=== PATIENT | female | born 1975 ===

== ENCOUNTER 2017-10-05 16:44 | Emergency (ER) | payer MEDICAID ==
[2017-10-05 16:45] VITALS: BMI 29.6
[2017-10-05] MEDS ORDERED: Sodium Chloride 0.9% 1,000 ML IV STA (17:02)
--- NOTE | 2017-10-05 18:09 | ED PDOC ---
Arrival/HPI - General Chief Complaint: GI Problem Time Seen by Provider: 10/05/17 16:59 Historian: Patient - History of Present Illness Narrative History of Present Illness (Text): 10/05/17 18:06 42yo female with PMHx of Diabetes present with complaint of diarrhea and dizziness. Notes that diarrhea started a week ago, a day after she started unknown antibiotics. she started having dizziness and weakness 4days ago. She denies abdominal pain, hematochezia, melena, fever, chills, headache, focal weakness, chest pain, any other complaint. Past Medical History - Provider Review Nursing Documentation Reviewed: Yes - Infectious Disease Hx of Infectious Diseases: None - Tetanus Immunization Tetanus Immunization: Unknown - Cardiac Hx Cardiac Disorders: No - Pulmonary Hx Asthma: Yes - Neurological Hx Neurological Disorder: No - Endocrine/Metabolic Hx Endocrine Disorders: Yes Hx Diabetes Mellitus Type 2: Yes Hx Hypothyroidism: Yes - Hematological/Oncological Hx Blood Disorders: No - Integumentary Hx Dermatological Disorder: No - Musculoskeletal/Rheumatological Hx Arthritis: Yes - Gastrointestinal Hx Gastrointestinal Disorders: No - Genitourinary/Gynecological Hx Genitourinary Disorders: No - Psychiatric Hx Depression: No Hx Substance Use: No - Past Surgical History Past Surgical History: No Previous - Surgical History Hx Thyroidectomy: Yes Other/Comment: PARTIAL THYROID - Anesthesia Hx Anesthesia: Yes Hx Anesthesia Reactions: No - Suicidal Assessment Feels Threatened In Home Enviroment: No Family/Social History - Physician Review Nursing Documentation Reviewed: Yes Family/Social History: Unknown Family HX Smoking Status: Heavy Smoker > 10 Cigarettes Daily Hx Alcohol Use: No Hx Substance Use: No Hx Substance Use Treatment: No Allergies/Home Meds Allergies/Adverse Reactions: Allergies ibuprofen [From Motrin] Allergy (Verified 10/05/17 16:50) REDNESS latex Allergy (Verified 10/05/17 16:50) RASH Home Medications: Home Meds Medication Instructions Recorded Confirmed Glimepiride [amaRYL] 4 mg PO DAILY 06/08/16 10/05/17 MetFORMIN [glucOPHAGE] 500 mg PO BID 06/08/16 10/05/17 Diclofenac [Diclofenac] 75 mg PO BID 10/05/17 10/05/17 Pregabalin [Lyrica] 100 mg PO TID 10/05/17 10/05/17 Review of Systems - Physician Review All systems were reviewed & negative as marked: Yes - Review of Systems Constitutional: Normal Eyes: Normal ENT: Normal Respiratory: Normal Cardiovascular: Normal Gastrointestinal: Diarrhea. absent: Abdominal Pain, Constipation, Nausea, Vomiting, Hematochezia, Hematemesis Genitourinary Female: Normal Musculoskeletal: Normal Skin: Normal Neurological: Dizziness. absent: Headache, Focal Weakness Endocrine: Normal Hemo/Lymphatic: Normal Psychiatric: Normal Physical Exam Vital Signs Reviewed: Yes Vital Signs Temp Pulse Resp BP Pulse Ox 10/05/17 16:54 98.1 F 92 H 16 115/78 98 Temperature: Afebrile Blood Pressure: Normal Pulse: Regular Respiratory Rate: Normal Appearance: Positive for: Well-Appearing, Non-Toxic, Comfortable Pain Distress: None Mental Status: Positive for: Alert and Oriented X 3 - Systems Exam Head: Present: Atraumatic, Normocephalic Pupils: Present: PERRL Extroacular Muscles: Present: EOMI Conjunctiva: Present: Normal Mouth: Present: Moist Mucous Membranes Neck: Present: Normal Range of Motion Respiratory/Chest: Present: Clear to Auscultation, Good Air Exchange. No: Respiratory Distress, Accessory Muscle Use Cardiovascular: Present: Regular Rate and Rhythm, Normal S1, S2. No: Murmurs Abdomen: Present: Normal Bowel Sounds, Other (Soft). No: Tenderness, Distention , Peritoneal Signs, Rebound, Guarding, McBurney's Point Tender, Rovsing's Sign Present Back: Present: Normal Inspection Upper Extremity: Present: Normal Inspection. No: Cyanosis, Edema Lower Extremity: Present: Normal Inspection. No: Edema Neurological: Present: GCS=15, CN II-XII Intact, Speech Normal, Motor Func Grossly Intact, Normal Sensory Function, Normal Cerebellar Funct, Norm Deep Tendon Reflexes, Gait Normal, Memory Normal, Normal 2Pt Descrimination, Other ( No focal neurological deficit) Skin: Present: Warm, Dry, Normal Color. No: Rashes Psychiatric: Present: Alert, Oriented x 3, Normal Insight, Normal Concentration Medical Decision Making ED Course and Treatment: 10/05/17 19:14 Pt in ED for stated history. She was hemodynamically stabel; and in no distress in ED. Lab was unremarkable with elevated BS noted. PT did not take her medication and she de,ined Insulin in ED. She was given Metformin and Gliperimdie in ED. She was hydrated. Rpeat FS improved. Stool was sent for C. diff She was advised to f/u MR in 2days for result Referred to her PMD. TRT ED for any new or worsening symptoms - Lab Interpretations Lab Results: 10/05/17 17:47 10/05/17 17:47 Lab Results 10/05/17 17:58: Influenza Typ A,B (EIA) Negative for flu a/b, Grp A Beta Strep Ag Negative 10/05/17 17:58: Urine Color Yellow, Urine Appearance Sl cloudy, Urine pH 6.0, Ur Specific [place] 1.015, Urine Protein Negative, Urine Glucose (UA) >=1000, Urine Ketones Trace H, Urine Blood Large H, Urine Nitrate Negative, Urine Bilirubin Negative, Urine Urobilinogen 0.2, Ur Leukocyte Esterase Negative, Urine RBC Tntc, Urine WBC 5 - 10, Ur Epithelial Cells 6 - 8, Urine Bacteria Mod 10/05/17 17:47: Sodium 137, Potassium 4.2, Chloride 104, Carbon Dioxide 22, Anion Gap 16, BUN 9, Creatinine 0.6 L, Est GFR ( Amer) > 60, Est GFR (Non -Af Amer) > 60, Random Glucose 375 H*, Calcium 8.8, Total Bilirubin 0.4, AST 18 , ALT 21, Alkaline Phosphatase 90, Total Protein 7.5, Albumin 3.8, Globulin 3.6 , Albumin/Globulin Ratio 1.1, Lipase 119 10/05/17 17:47: PT 10.8, INR 0.99, APTT 28.4 10/05/17 17:47: WBC 8.3, RBC 4.29, Hgb 12.9, Hct 39.2, MCV 91.4, MCH 30.1, MCHC 32.9, RDW 13.2, Plt Count 322, MPV 11.5 H, Gran % 68.7 H, Lymph % (Auto) 24.5, [place] % (Auto) 4.2, Eos % (Auto) 2.4, Baso % (Auto) 0.2, Gran # 5.68, Lymph # 2.0 , [place] # 0.4, Eos # 0.2, Baso # 0.02 - Medication Orders Current Medication Orders: Discontinued Medications Famotidine (Pepcid) 20 mg IVP STAT STA Stop: 10/05/17 17:03 Last Admin: 10/05/17 17:59 Dose: 20 mg IVP Administration Document 10/05/17 17:59 OCS (Rec: 10/05/17 17:59 OCS [id number]) Charges for Administration # of IVP Administrations 1 Glimepiride (Amaryl) 4 mg PO DAILY STA Stop: 10/05/17 18:50 Last Admin: 10/05/17 19:23 Dose: 4 mg Sodium Chloride (Sodium Chloride 0.9%) 1,000 mls @ 1,000 mls/hr IV .Q1H STA Stop: 10/05/17 18:01 Last Admin: 10/05/17 17:59 Dose: 1,000 mls/hr eMAR Start Stop Document 10/05/17 17:59 OCS (Rec: 10/05/17 17:59 OCS [id number]) Intravenous Solution Start Date 10/05/17 Start Time 17:59 End Date 10/05/17 End time 18:59 Total Infusion Time 60 Insulin Human Regular (Humulin R Med) 8 units IV ONCE STA PRN Reason: Protocol Stop: 10/05/17 18:37 Last Admin: 10/05/17 18:49 Dose: Not Given Non-Admin Reason: Patient Refused Metformin HCl (Glucophage) 500 mg PO STAT STA Stop: 10/05/17 18:51 Last Admin: 10/05/17 19:23 Dose: 500 mg Ondansetron HCl (Zofran Inj) 4 mg IVP STAT STA Stop: 10/05/17 17:03 Last Admin: 10/05/17 17:59 Dose: 4 mg IVP Administration Document 10/05/17 17:59 OCS (Rec: 10/05/17 17:[address]) Charges for Administration # of IVP Administrations 1 Disposition/Present on Arrival - Present on Arrival Any Indicators Present on Arrival: No History of DVT/PE: No History of Uncontrolled Diabetes: Yes Urinary Catheter: No History of Decub. Ulcer: No History Surgical Site Infection Following: None - Disposition Have Diagnosis and Disposition been Completed?: Yes Diagnosis: Diarrhea, Dizziness, Hyperglycemia Disposition: HOME/ ROUTINE Disposition Time: 19:55 Patient Plan: Discharge Condition: STABLE Discharge Instructions (ExitCare): Diabetic Hyperglycemia (ED), Acute Diarrhea (ED), Dizziness (ED) Additional Instructions: Follow up with your Doctor REturn to ED for any new or worsening symptoms Prescriptions: Cephalexin [Keflex] 500 mg PO QID #28 capsule Referrals: Stan Patel MD [Primary Care Provider] - Follow up with primary Forms: [employer] (Sinhala)
[2017-10-05 18:13] LABS: INR 0.99 (0.93-1.08); PARTIAL THROMBOPLASTIN TIME 28.4 Seconds (25.1-36.5)
[2017-10-05 18:21] LABS: BASO # 0.02 K/mm3 (0.0-2.0); BASO % 0.2 % (0.0-3.0); EOS # 0.2 (0.0-0.7); EOS % 2.4 % (1.5-5.0); GRAN # 5.68 (1.4-6.5); GRAN % 68.7 % (50.0-68.0); HEMATOCRIT 39.2 % (36.0-48.0); LYMPH % 24.5 % (22.0-35.0); MEAN CELL VOLUME 91.4 fl (80.0-105.0); MEAN CORPUSCULAR HEMOGLOBIN 30.1 pg (25.0-35.0); MEAN CORPUSCULAR HGB CONC 32.9 g/dl (31.0-37.0); MEAN PLATELET VOLUME 11.5 fl (7.0-11.0); MONO # 0.4 (0.1-0.6); MONO % 4.2 % (1.0-6.0); RED CELL DISTRIBUTION WIDTH 13.2 % (11.5-14.5); WHITE BLOOD COUNT 8.3 10^3/ul (4.5-11.0)
[2017-10-05 18:23] LABS: URINE BILIRUBIN NEGATIVE (NEGATIVE); URINE BLOOD LARGE (NEGATIVE); URINE GLUCOSE (UA) >=1000 mg/dL (NEGATIVE); URINE KETONE TRACE mg/dL (NEGATIVE); URINE LEUKOCYTE ESTERASE NEGATIVE Leu/uL (NEGATIVE); URINE PROTEIN NEGATIVE mg/dL (<30 mg/dL); URINE UROBILINOGEN 0.2 E.U./dL (<1 E.U./dL)
[2017-10-05 18:26] LABS: ALB/GLOB RATIO 1.1 (1.1-1.8); ALKALINE PHOSPHATASE 90 U/L (38-126); ALT/SGPT 21 U/L (7-56); AST/SGOT 18 U/L (14-36); BILIRUBIN,TOTAL 0.4 mg/dL (0.2-1.3); BLOOD UREA NITROGEN 9 mg/dL (7-21); CALCIUM 8.8 mg/dL (8.4-10.5); CARBON DIOXIDE 22 mmol/L (21-33); CHLORIDE 104 mmol/L (98-107); GFR AFRICAN-AMERICAN > 60; GLUCOSE,RANDOM 375 mg/dL (70-110); LIPASE 119 U/L (23-300); POTASSIUM 4.2 mmol/L (3.6-5.0); SODIUM 137 mmol/L (132-148); TOTAL PROTEIN 7.5 g/dL (5.8-8.3)
[2017-10-05] MEDS ORDERED: Insulin Reg-MEDIUM-Coverage IV STA (18:36)
[2017-10-05 18:38] LABS: URINE APPEARANCE SL CLOUDY (CLEAR); URINE COLOR YELLOW (YELLOW)
[2017-10-05 18:40] LABS: URINE BACTERIA MOD (NEG); URINE RBC TNTC /hpf (0-2)
[2017-10-05 20:06] VITALS: BP 126/81; PULSE 62; RESP 17; O2SAT 96
[2017-10-05 20:19] VITALS: TEMP 98
== END 2017-10-05 20:19 | disposition home or self-care (01) ==
LOC: ED 16:44
DX: E11.65 Type 2 diabetes mellitus with hyperglycemia (principal); R19.7 Diarrhea, unspecified; R42 Dizziness and giddiness
CPT/HCPCS: 80053; 81001; 83690; 85025; 85610; 85730; 87070; 87086; 87324; 87430; 87804; 96361; 96374; 96375; 99284; J2405; J7040

== ENCOUNTER 2018-02-28 08:26 | Emergency (ER) | payer MEDICAID ==
[2018-02-28 08:31] VITALS: BMI 32.2
[2018-02-28 08:36] VITALS: TEMP 98.4
[2018-02-28] MEDS ORDERED: Sodium Chloride 0.9% 1,000 ML IV STA (09:00)
[2018-02-28 09:24] LABS: ARTERIAL BLOOD GAS HCO3 23.1 mmol/L (21-28); ARTERIAL BLOOD GAS O2 SAT 99.6 % (95-98); ARTERIAL BLOOD GAS PCO2 34 mm/Hg (35-45); ARTERIAL BLOOD GAS PH 7.44 (7.35-7.45); ARTERIAL BLOOD GAS TCO2 24.1 mmol.L (22-28)
--- NOTE | 2018-02-28 09:48 | ED PDOC ---
Arrival/HPI - General Historian: Patient, Spouse - General Chief Complaint: High Blood Sugar Time Seen by Provider: 02/28/18 08:29 - History of Present Illness Narrative History of Present Illness (Text): 02/28/18 09:31 42 yo F with PMH of type II diabetes (since 2002) and sciatica presents to the ER complaining of persistently elevated blood sugars, and 2 days of dizziness, disorientation, and shortness of breath on exertion. She denies any chest pain, chest pain on exertion, palpitations. She also admits to nausea. Patient reports that her blood sugar is poorly controlled at baseline, despite compliance with her medications, and that she has not been taking her glimepiride for the past week because she ran out of her medications. She also reports that about one week ago, she had a procedure for her sciatica; a "nerve block" which required sedation. She denies any sick contacts, recent travel, insect bites. She also denies cough, rhinorrhea, congestion, rash, dysuria. ( Mary Hoffman) Past Medical History - Provider Review Nursing Documentation Reviewed: Yes - Travel History Have you recently traveled outside [place] w/in the past 3 mons?: No - Infectious Disease Hx of Infectious Diseases: None - Tetanus Immunization Tetanus Immunization: Unknown - Cardiac Hx Cardiac Disorders: No - Pulmonary Hx Asthma: Yes - Neurological Hx Neurological Disorder: No - Endocrine/Metabolic Hx Diabetes Mellitus Type 2: Yes Hx Hypothyroidism: Yes - Hematological/Oncological Hx Blood Disorders: No - Integumentary Hx Dermatological Disorder: No - Musculoskeletal/Rheumatological Hx Arthritis: Yes Hx Rheumatoid Arthritis: Yes - Gastrointestinal Hx Gastrointestinal Disorders: No - Genitourinary/Gynecological Hx Genitourinary Disorders: No - Psychiatric Hx Depression: No Hx Substance Use: No - Past Surgical History Past Surgical History: No Previous - Surgical History Hx Thyroidectomy: Yes Other/Comment: PARTIAL THYROID - Anesthesia Hx Anesthesia: Yes Hx Anesthesia Reactions: No - Suicidal Assessment Feels Threatened In Home Enviroment: No - Patient History Narrative Patient History: Diebetes (Mary Hoffman) Family/Social History - Physician Review Nursing Documentation Reviewed: Yes Family/Social History: No Known Family HX, Unknown Family HX Smoking Status: Heavy Smoker > 10 Cigarettes Daily Hx Alcohol Use: No Hx Substance Use: No Hx Substance Use Treatment: No Allergies/Home Meds Allergies/Adverse Reactions: Allergies ibuprofen [From Motrin] Allergy (Verified 10/05/17 16:50) REDNESS latex Allergy (Verified 10/05/17 16:50) RASH Home Medications: Home Meds Medication Instructions Recorded Confirmed Glimepiride [amaRYL] 4 mg PO DAILY 06/08/16 02/28/18 Diclofenac [Diclofenac] 75 mg PO BID 10/05/17 02/28/18 Pregabalin [Lyrica] 100 mg PO TID 10/05/17 02/28/18 MetFORMIN [glucoPHAGE] 1,000 mg PO BID 02/28/18 02/28/18 Review of Systems - Review of Systems Constitutional: Normal Eyes: Normal ENT: Normal Respiratory: SOB Cardiovascular: Normal Gastrointestinal: Abdominal Pain Genitourinary Female: Normal Musculoskeletal: Normal Skin: Normal Neurological: Dizziness Endocrine: Polyuria Hemo/Lymphatic: Normal Psychiatric: Normal Physical Exam Vital Signs Reviewed: Yes Temperature: Afebrile Blood Pressure: Normal Pulse: Regular Respiratory Rate: Normal Appearance: Positive for: Well-Appearing, Non-Toxic. No: Comfortable Pain Distress: Mild Mental Status: Positive for: Alert and Oriented X 3 Finger Stick Blood Glucose: 356 - Systems Exam Head: Present: Atraumatic, Normocephalic Pupils: Present: PERRL Extroacular Muscles: Present: EOMI Conjunctiva: Present: Normal Mouth: Present: Dry Pharnyx: Present: Normal Neck: Present: Normal Range of Motion Respiratory/Chest: Present: Clear to Auscultation, Good Air Exchange. No: Wheezes, Rales, Rhonchi Cardiovascular: Present: Regular Rate and Rhythm, Normal S1, S2 Abdomen: Present: Normal Bowel Sounds. No: Tenderness, Distention, Peritoneal Signs, Rebound, Guarding Upper Extremity: Present: Normal Inspection. No: Cyanosis, Edema Lower Extremity: Present: Normal Inspection. No: Edema, CALF TENDERNESS Neurological: Present: GCS=15, CN II-XII Intact, Speech Normal Skin: Present: Warm, Dry, Normal Color Psychiatric: Present: Alert, Oriented x 3, Normal Insight, Normal Concentration Vital Signs Temp Pulse Resp BP Pulse Ox 02/28/18 13:21 78 16 128/86 99 02/28/18 11:16 78 18 121/68 100 02/28/18 10:13 72 121/65 100 02/28/18 08:36 98.4 F 88 18 132/85 98 Medical Decision Making ED Course and Treatment: 02/28/18 10:36 Impression: Hyperglycemia, nausea, dyspnea on exertion Differential diagnoses include, but are not limited to: HHS, DKA, ACS, UTI, noncompliance Prior ER visits: Plan -- 1L NS IVF bolus -- Labs: CBC, CMP, cardiac ISO, UA, ABG -- CXR, EKG -- Reassess and dispo Progress notes -- ABG shows no acidosis, no elevated lactate -- Labs remarkable for hyperglycemia -- EKG and CXR unremarkable -- Requested nurse to repeat accucheck after 1L NS bolus 02/28/18 11:39 -- Repeat accucheck shows mild improvement -- Nausea and dizziness improved; patient requesting diet -- Ordered repeat 500cc bolus -- Patient complaining of abdominal pain, dull, cramping, epigastric, has not had this pain before, unimproved since presentation -- Ordered CT Abd/Pelv with IV contrast -- Ordered pepcid 20mg IV 02/28/18 12:34 02/28/18 14:45 -- CT scan unremarkable -- Patient reports that abdominal pain resolved after IV pepcid -- Patient no longer nauseous, and she at a bagel, despite being told that she must remain NPO -- Patient feels well overall, with total resolution in her symptoms. Patient called her pharmacy and has a refill of her prescriptions waiting for her. -- Discussed importance of compliance with medications, and close follow up. Patient will be discharged home. She is in agreement with plan. Informed patient to return to the ER for any new or worsening concerns. (Mary Hoffman) Patient seen and evaluated with medical program specialist. On exam, she is cardiovascularly stable. She is not acidotic, anion gap is unremarkable. IV fluids given with improvement in hyperglycemia. She is hungry, no nausea or vomiting in ED, ate food without difficulty. She admit noncompliance with her meds for past week. Current exam NOT consistent with severe DKA. Patient states mild abdominal discomfort for past week, on exam, she has mild right sided pain. Denies dysuria or vaginal discharge. CT abdomen/unremarkable. She denies chest pain and on my history, denies specific sob with exertion states to me more generally fatigued since her blood sugar has been elevated. Denies family hx of CAD. EKG and troponin unremarkable. She denies chest pain or shortness of breath with exertion on my history. NO hypoxia. Lungs clear. On re-exam, she states symptoms resolved. She states she was able to contact her physician today and her diabetic medication was refilled and "waiting for me at pharmacy". Patient and family advised of risks of noncompliance with meds and need for close follow-up. (Janet Longo) - Lab Interpretations Lab Results: 02/28/18 09:20 02/28/18 09:20 Lab Results 02/28/18 11:15: POC Glucose (mg/dL) 314 H 02/28/18 09:20: Sodium 134, Chloride 98, Potassium 4.4, Carbon Dioxide 25, Anion Gap 15, BUN 13, Creatinine 0.6 L, Est GFR ( Amer) > 60, Est GFR ( Non-Af Amer) > 60, Random Glucose 392 H*, Calcium 9.3, Total Bilirubin 0.4, AST 13 L D, ALT 22, Alkaline Phosphatase 87, Lactate Dehydrogenase 333, Total Creatine Kinase 27 L, Troponin I < 0.01, Total Protein 7.8, Albumin 4.2, Globulin 3.6, Albumin/Globulin Ratio 1.2 02/28/18 09:20: pCO2 34 L, pO2 102.0 H, HCO3 23.1, ABG pH 7.44, ABG Total CO2 24.1, ABG O2 Saturation 99.6 H, ABG Base Excess -0.5, ABG Potassium 4.0, Sodium 136.0, Chloride 104.0, Glucose 402 H*, Lactate 1.7, FiO2 21.0, Arterial Blood Potassium 4.0 02/28/18 09:20: Urine Color Yellow, Urine Appearance Clear, Urine pH 6.0, Ur Specific [place] 1.015, Urine Protein Negative, Urine Glucose (UA) Negative, Urine Ketones 40 H, Urine Blood Negative, Urine Nitrate Negative, Urine Bilirubin Negative, Urine Urobilinogen 0.2, Ur Leukocyte Esterase Negative 02/28/18 09:20: PT 10.7, INR 0.93, APTT 28.4 02/28/18 09:20: WBC 8.1, RBC 4.54, Hgb 13.3, Hct 40.1, MCV 88.3 D, MCH 29.3, MCHC 33.2, RDW 13.2, Plt Count 327, MPV 11.6 H, Gran % 74.0 H, Lymph % (Auto) 20.9 L, [place] % (Auto) 3.7, Eos % (Auto) 1.0 L, Baso % (Auto) 0.4, Gran # 5.97, Lymph # (Auto) 1.7, [place] # (Auto) 0.3, Eos # (Auto) 0.1, Baso # (Auto) 0.03 02/28/18 08:34: POC Glucose (mg/dL) 356 H - RAD Interpretation Radiology Orders: 02/28/18 09:05 CHEST PORTABLE [RAD] Stat 02/28/18 11:49 ABDOMEN & PELVIS [ABD & PELVIS IV CONTRAST ONLY] [CT] Stat - Medication Orders Current Medication Orders: Discontinued Medications Famotidine (Pepcid 20mg/50ml Premix) 20 mg IVPB STAT STA Stop: 02/28/18 12:00 Last Admin: 02/28/18 12:32 Dose: 20 mg eMAR Start Stop Document 02/28/18 12:32 MS (Rec: 02/28/18 12:32 MS [id number]) Intravenous Solution Start Date 02/28/18 Start Time 12:32 Sodium Chloride (Sodium Chloride 0.9%) 1,000 mls @ 999 mls/hr IV .Q1H1M STA Stop: 02/28/18 10:00 Last Admin: 02/28/18 09:55 Dose: 999 mls/hr eMAR Start Stop Document 02/28/18 09:55 MS (Rec: 02/28/18 09:56 MS [id number]) Intravenous Solution Start Date 02/28/18 Start Time 09:56 End Date 02/28/18 End time 10:56 Total Infusion Time 60 Sodium Chloride (Sodium Chloride 0.9%) 500 mls @ 999 mls/hr IV .Q31M STA Stop: 02/28/18 12:03 Last Admin: 02/28/18 11:50 Dose: 999 mls/hr eMAR Start Stop Document 02/28/18 11:50 MS (Rec: 02/28/18 11:50 MS [id number]) Intravenous Solution Start Date 02/28/18 Start Time 11:50 End Date 02/28/18 End time 12:20 Total Infusion Time 30 Oxycodone/Acetaminophen (Percocet 10/325 Mg Tab) 1 tab PO STAT STA Stop: 02/28/18 10:40 Last Admin: 02/28/18 10:59 Dose: 1 tab MAR Pain Assessment Document 02/28/18 10:59 MS (Rec: 02/28/18 11:01 MS [id number]) Pain Reassessment Is this a pain reassessment? No Sleep Is patient sleeping during reassessment? No Presence of Pain Presence of Pain Yes Pain Scale Used Pain Scale Used Numeric Location Left, Right or Bilateral Right Pain Location Body Site Leg Description Description Intermittent Intensity of Pain at present 9 Pain Behavior Irritability Grasping Site Disposition/Present on Arrival - Present on Arrival Any Indicators Present on Arrival: Yes History of DVT/PE: No History of Uncontrolled Diabetes: Yes Urinary Catheter: No History of Decub. Ulcer: No History Surgical Site Infection Following: None - Disposition Have Diagnosis and Disposition been Completed?: Yes Disposition Time: 14:48 Patient Plan: Discharge - Disposition Diagnosis: Uncontrolled diabetes mellitus, Hyperglycemia, Abdominal pain Disposition: HOME/ ROUTINE Condition: FAIR Discharge Instructions (ExitCare): Hyperglycemia, Adult (DC), Diabetic Ketoacidosis (DC) Additional Instructions: -- Continue your medications as previously prescribed, and adhere to a low carbohydrate diet -- Take your first dose of glimepiride and metformin today, when you picking tech your prescriptions -- Follow up with your primary care doctor within 2-3 days -- Return to the ER for any new or worsening concerns Forms: [employer] (Khmer)
[2018-02-28 10:13] LABS: BASO # 0.03 K/mm3 (0.0-2.0); BASO % 0.4 % (0.0-3.0); EOS # 0.1 (0.0-0.7); GRAN # 5.97 (1.4-6.5); HEMOGLOBIN 13.3 g/dL (12.0-16.0); LYMPH # 1.7 (1.2-3.4); LYMPH % 20.9 % (22.0-35.0); MEAN CELL VOLUME 88.3 fl (80.0-105.0); MEAN CORPUSCULAR HEMOGLOBIN 29.3 pg (25.0-35.0); MEAN CORPUSCULAR HGB CONC 33.2 g/dl (31.0-37.0); MEAN PLATELET VOLUME 11.6 fl (7.0-11.0); MONO # 0.3 (0.1-0.6); MONO % 3.7 % (1.0-6.0); RBC 4.54 10^6/uL (3.5-6.1); RED CELL DISTRIBUTION WIDTH 13.2 % (11.5-14.5); WHITE BLOOD COUNT 8.1 10^3/ul (4.5-11.0)
[2018-02-28 10:20] LABS: URINE BILIRUBIN NEGATIVE (NEGATIVE); URINE BLOOD NEGATIVE (NEGATIVE); URINE GLUCOSE (UA) NEGATIVE (NEGATIVE); URINE LEUKOCYTE ESTERASE NEGATIVE Leu/uL (NEGATIVE); URINE PROTEIN NEGATIVE mg/dL (<30 mg/dL); URINE UROBILINOGEN 0.2 E.U./dL (<1 E.U./dL)
[2018-02-28 10:21] LABS: URINE APPEARANCE CLEAR (CLEAR)
[2018-02-28 10:22] LABS: URINE COLOR YELLOW (YELLOW)
[2018-02-28 10:28] LABS: TROPONIN I < 0.01 ng/mL
[2018-02-28 10:29] LABS: INR 0.93 (0.93-1.08); PARTIAL THROMBOPLASTIN TIME 28.4 Seconds (25.1-36.5); PROTHROMBIN TIME 10.7 SECONDS (9.4-12.5)
[2018-02-28 10:30] LABS: ALB/GLOB RATIO 1.2 (1.1-1.8); ALBUMIN 4.2 g/dL (3.0-4.8); ALT/SGPT 22 U/L (7-56); AST/SGOT 13 U/L (14-36); BLOOD UREA NITROGEN 13 mg/dL (7-21); CALCIUM 9.3 mg/dL (8.4-10.5); GFR AFRICAN-AMERICAN > 60; GFR NON-AFRICAN AMERICAN > 60
[2018-02-28] MEDS ORDERED: Oxycodone/Acetaminophen 10/325 mg Tab PO STA (10:39)
[2018-02-28 11:17] VITALS: PULSE 78
[2018-02-28] MEDS ORDERED: Sodium Chloride 0.9% 500 ML IV STA (11:33)
[2018-02-28] MEDS ORDERED: Famotidine 20mg/50ml Premix IVPB STA (11:59)
[2018-02-28] MEDS ORDERED: Iohexol 350 MG/100 ML VIAL ONE (12:19)
--- NOTE | 2018-02-28 12:55 | RAD ---
HISTORY: Shortness of breath COMPARISON: 10/12/2016. FINDINGS: LUNGS: The lungs are well inflated and clear. PLEURA: No significant pleural effusion identified, no pneumothorax apparent. CARDIOVASCULAR: Normal. OSSEOUS STRUCTURES: No significant abnormalities. VISUALIZED UPPER ABDOMEN: Normal. OTHER FINDINGS: None. IMPRESSION: No active pulmonary disease.
--- NOTE | 2018-02-28 13:12 | CT ---
PROCEDURE: CT Abdomen and Pelvis with contrast HISTORY: abdominal pain COMPARISON: 07/26/2014 TECHNIQUE: Contrast dose: 100 cc of Omni 350 Radiation dose: Total exam DLP = 1008 mGy-cm. This CT exam was performed using one or more of the following dose reduction techniques: Automated exposure control, adjustment of the mA and/or kV according to patient size, and/or use of iterative reconstruction technique. FINDINGS: LOWER THORAX: Unremarkable. LIVER: Unremarkable. No gross lesion or ductal dilatation. Mild fatty infiltration GALLBLADDER AND BILE DUCTS: Unremarkable. PANCREAS: Unremarkable. No gross lesion or ductal dilatation. SPLEEN: Unremarkable. ADRENALS: Unremarkable. No mass. KIDNEYS AND URETERS: Unremarkable. No hydronephrosis. No solid mass. VASCULATURE: Unremarkable. No aortic aneurysm. BOWEL: Unremarkable. No obstruction. No gross mural thickening. APPENDIX: Normal appendix. PERITONEUM: Unremarkable. No free fluid. No free air. LYMPH NODES: Unremarkable. No enlarged lymph nodes. BLADDER: Unremarkable. REPRODUCTIVE: There is a 5.4 cm fibroid in the left side of the uterine fundus. BONES: No acute fracture. OTHER FINDINGS: None. IMPRESSION: Uterine fibroid. Mild fatty infiltration of the liver. No acute intra-abdominal findings
[2018-02-28 13:22] VITALS: BP 128/86; RESP 16; O2SAT 99
--- NOTE | 2018-02-28 18:38 | CARD ---
APPROVED REPORT EKG Measurement Heart [id number] <Conclusion> Normal sinus rhythm Normal ECG
== END 2018-02-28 15:00 | disposition home or self-care (01) ==
LOC: ED 08:26
DX: E11.65 Type 2 diabetes mellitus with hyperglycemia (principal); R10.9 Unspecified abdominal pain; F17.210 Nicotine dependence, cigarettes, uncomplicated; M06.9 Rheumatoid arthritis, unspecified; E03.9 Hypothyroidism, unspecified
CPT/HCPCS: 71045; 74177; 80053; 81003; 82550; 82803; 82948; 83615; 84484; 85025; 85610; 85730; 93005; 96360; 99284; J7040; Q9967

== ENCOUNTER 2018-11-15 13:50 | Emergency (ER) | payer MEDICAID ==
[2018-11-15 14:12] VITALS: BMI 31.9
[2018-11-15] MEDS ORDERED: Sodium Chloride 0.9% 500 ML IV STA (14:16)
--- NOTE | 2018-11-15 14:37 | ED PDOC ---
Arrival/HPI - General Chief Complaint: Chest Pain Time Seen by Provider: 11/15/18 13:52 Historian: Patient - History of Present Illness Narrative History of Present Illness (Text): 11/15/18 14:33 A 43 year old female, whose past medical history includes diabetes type 2 and sciatica, presents to the emergency department complaining of chest pain and abdominal pain for 2 days. Patient reports that the pain is R sided, she mention s pain is similar to GERD episode, and it resolves when rubbing chest. As for abdominal pain, states pain is associated with constipation, nausea, and lightheadedness. Patient denies any fever, cough, shortness of breath, or any other complaints at this time. Denies dysuria PMD: Dr. Naren Monterroso 11/15/18 17:57 11/15/18 17:58 Past Medical History - Provider Review Nursing Documentation Reviewed: Yes - Infectious Disease Hx of Infectious Diseases: None - Tetanus Immunization Tetanus Immunization: Unknown - Cardiac Hx Cardiac Disorders: No - Pulmonary Hx Respiratory Disorders: Yes Hx Asthma: Yes - Neurological Hx Neurological Disorder: No - HEENT Hx HEENT Disorder: No - Renal Hx Renal Disorder: No - Endocrine/Metabolic Hx Endocrine Disorders: Yes Hx Diabetes Mellitus Type 2: Yes Hx Hypothyroidism: Yes - Hematological/Oncological Hx Blood Disorders: No - Integumentary Hx Dermatological Disorder: No - Musculoskeletal/Rheumatological Hx Musculoskeletal Disorders: Yes Hx Arthritis: Yes Hx Rheumatoid Arthritis: Yes - Gastrointestinal Hx Gastrointestinal Disorders: No - Genitourinary/Gynecological Hx Genitourinary Disorders: No - Psychiatric Hx Psychophysiologic Disorder: No Hx Substance Use: No - Past Surgical History Past Surgical History: No Previous - Surgical History Hx Thyroidectomy: Yes Other/Comment: PARTIAL THYROID - Anesthesia Hx Anesthesia: Yes Hx Anesthesia Reactions: No - Suicidal Assessment Feels Threatened In Home Enviroment: No Family/Social History - Physician Review Nursing Documentation Reviewed: Yes Family/Social History: No Known Family HX Smoking Status: Heavy Smoker > 10 Cigarettes Daily Hx Alcohol Use: No Hx Substance Use: No Hx Substance Use Treatment: No Allergies/Home Meds Allergies/Adverse Reactions: Allergies ibuprofen [From Motrin] Allergy (Verified 11/15/18 14:59) REDNESS latex Allergy (Verified 11/15/18 14:59) RASH Home Medications: Home Meds Medication Instructions Recorded Confirmed Glimepiride [amaRYL] 4 mg PO DAILY 06/08/16 02/28/18 Diclofenac 75 mg PO BID 10/05/17 02/28/18 Pregabalin [Lyrica] 100 mg PO TID 10/05/17 02/28/18 RX: MetFORMIN [glucoPHAGE] 1,000 mg PO BID 02/28/18 02/28/18 Review of Systems - Review of Systems Constitutional: absent: Fevers Respiratory: absent: SOB, Cough Cardiovascular: Chest Pain Gastrointestinal: Abdominal Pain, Constipation, Nausea Neurological: Dizziness (lightheadedness) Physical Exam Temperature: Afebrile Blood Pressure: Normal Pulse: Regular Respiratory Rate: Normal Appearance: Positive for: Well-Appearing, Non-Toxic, Comfortable Pain Distress: None Mental Status: Positive for: Alert and Oriented X 3 - Systems Exam Head: Present: Atraumatic, Normocephalic Pupils: Present: PERRL Extroacular Muscles: Present: EOMI Conjunctiva: Present: Normal Mouth: Present: Moist Mucous Membranes Neck: Present: Normal Range of Motion Respiratory/Chest: Present: Clear to Auscultation, Good Air Exchange. No: Respiratory Distress, Accessory Muscle Use Cardiovascular: Present: Regular Rate and Rhythm, Normal S1, S2. No: Murmurs Abdomen: Present: Tenderness (RUQ and LUQ regions). No: Distention, Peritoneal Signs Back: Present: Normal Inspection Upper Extremity: Present: Normal Inspection. No: Cyanosis, Edema Lower Extremity: Present: Normal Inspection. No: Edema Neurological: Present: GCS=15, CN II-XII Intact, Speech Normal Skin: Present: Warm, Dry, Normal Color. No: Rashes Psychiatric: Present: Alert, Oriented x 3, Normal Insight, Normal Concentration Medical Decision Making ED Course and Treatment: 11/15/18 14:35 Impression: 43 year old female with chest pain and abdominal pain, associated with constipation, nausea, and lightheadedness. Physical exam shows RUQ/LUQ tenderness. Plan: -- Abd/Pelvis CT -- Chest X-ray -- Labs -- POC Urine -- Reassess and disposition Prior Visits: Notes and results from previous visits were reviewed. Patient was last seen here in the emergency department on 02/28/2018 for persistently elevated blood sugars, dizziness, disorientation, and shortness of breath on exertion. Patient was discharged home. Progress Notes: 11/15/18 17:58 Patient is perc negative 11/15/18 18:01 EKG shows NSR at 84bpm. Trop x 1 negative. Cxray negative 11/15/2018 18:23 Chest X-ray IMPRESSION: No active disease. No significant interval change compared to the prior examination(s). Dictator: Jw Storey MD 11/15/2018 18:26 Abd/Pelvis CT Fatty liver, Fibroids IMPRESSION: No acute or significant findings related to/account for the clinical presentation. Dictator: Jw Storey MD 11/15/18 19:01 Patient has heart score:1. She was instructed on importance of following up with cardiology for further evaluation. On reevaluation, is tolerating po. She was instructed to follow-up with cardiology, gynecology and PMD - RAD Interpretation Radiology Orders: 11/15/18 14:15 ABD & PELVIS IV CONTRAST ONLY [CT] Stat 11/15/18 14:16 CHEST PORTABLE [RAD] Stat - Medication Orders Current Medication Orders: Sodium Chloride (Sodium Chloride 0.9%) 500 mls @ 999 mls/hr IV .Q31M STA Stop: 11/15/18 14:46 Discontinued Medications Ketorolac Tromethamine (Toradol) 30 mg IVP STAT STA Stop: 11/15/18 14:17 Ondansetron HCl (Zofran Inj) 4 mg IVP STAT STA Stop: 11/15/18 14:17 - Scribe Statement The provider has reviewed the documentation as recorded by the Radha Bangura Provider Scribe Attestation: All medical record entries made by the Scribe were at my direction and personally dictated by me. I have reviewed the chart and agree that the record accurately reflects my personal performance of the history, physical exam, medical decision making, and the department course for this patient. I have also personally directed, reviewed, and agree with the discharge instructions and di sposition. Disposition/Present on Arrival - Present on Arrival Any Indicators Present on Arrival: No History of DVT/PE: No History of Uncontrolled Diabetes: Yes Urinary Catheter: No History of Decub. Ulcer: No History Surgical Site Infection Following: None - Disposition Have Diagnosis and Disposition been Completed?: Yes Diagnosis: Fatty liver, Fibroid, GERD (gastroesophageal reflux disease), Chest pain Disposition: HOME/ ROUTINE Disposition Time: 18:49 Patient Plan: Discharge Condition: GOOD Discharge Instructions (ExitCare): Acid Reflux (Gastroesophageal Reflux Disease) in Adults, Chest Pain (ED) Additional Instructions: Follow-up with PMD within 2 days. Return to emergency department if condition worsens. Referrals: Ned Birmingham MD [Staff Provider] - Follow up with primary Forms: [employer] (Yi)
[2018-11-15 14:45] VITALS: O2SAT 98
[2018-11-15 14:50] LABS: BASO # 0.03 K/mm3 (0.0-2.0); BASO % 0.3 % (0.0-3.0); EOS # 0.2 (0.0-0.7); EOS % 2.3 % (1.5-5.0); GRAN # 6.91 (1.4-6.5); HEMOGLOBIN 11.5 g/dL (12.0-16.0); LYMPH # 2.4 (1.2-3.4); LYMPH % 23.8 % (22.0-35.0); MEAN CELL VOLUME 87.9 fl (80.0-105.0); MEAN CORPUSCULAR HEMOGLOBIN 27.3 pg (25.0-35.0); MEAN CORPUSCULAR HGB CONC 31.1 g/dl (31.0-37.0); MEAN PLATELET VOLUME 10.9 fl (7.0-11.0); MONO # 0.5 (0.1-0.6); MONO % 4.6 % (1.0-6.0); RBC 4.21 10^6/uL (3.5-6.1); RED CELL DISTRIBUTION WIDTH 15.2 % (11.5-14.5)
[2018-11-15 17:04] LABS: ALB/GLOB RATIO 1.1 (1.1-1.8); ALBUMIN 4.2 g/dL (3.0-4.8); ALT/SGPT 12 U/L (7-56); AST/SGOT 17 U/L (14-36); BLOOD UREA NITROGEN 7 mg/dL (7-21); CALCIUM 9.1 mg/dL (8.4-10.5); GFR NON-AFRICAN AMERICAN > 60; LIPASE 108 U/L (23-300)
[2018-11-15 17:14] LABS: TROPONIN I < 0.01 ng/mL
--- NOTE | 2018-11-15 18:26 | RAD ---
Date of service: 11/15/2018 HISTORY: chest/abdominal pain COMPARISON: 02/28/2018 FINDINGS: LUNGS: No active pulmonary disease. PLEURA: No significant pleural effusion identified, no pneumothorax apparent. CARDIOVASCULAR: No atherosclerotic calcification present Normal. OSSEOUS STRUCTURES: No significant abnormalities. VISUALIZED UPPER ABDOMEN: Normal. OTHER FINDINGS: None. IMPRESSION: No active disease. No significant interval change compared to the prior examination(s). Concordant results with the preliminary interpretation rendered by the emergency department physician procedure.
--- NOTE | 2018-11-15 18:30 | CT ---
Date of service: 11/15/2018 PROCEDURE: CT Abdomen and Pelvis with contrast HISTORY: abdominal pain, LLQ COMPARISON: 07/26/2014 AND 02/28/2018. SERIAL CT SCANS OF THE ABDOMEN AND PELVIS TECHNIQUE: Intravenous contrast dose: Radiation dose: Total exam DLP = <inf_radiation_dlp> mGy-cm. This CT exam was performed using one or more of the following dose reduction techniques: Automated exposure control, adjustment of the mA and/or kV according to patient size, and/or use of iterative reconstruction technique. FINDINGS: LOWER THORAX: Unremarkable. LIVER: Hepatic steatosis. No focal masses. No intrahepatic bile duct dilatation or perihepatic ascites.. FOCAL FATTY SPARING FALCIFORM LIGAMENT REGION. GALLBLADDER AND BILE DUCTS: Unremarkable. PANCREAS: Unremarkable. No gross lesion or ductal dilatation. SPLEEN: Unremarkable. ADRENALS: Unremarkable. No mass. KIDNEYS AND URETERS: Unremarkable. No hydronephrosis. No solid mass. VASCULATURE: Unremarkable. No aortic aneurysm. No atherosclerotic calcification or mural plaque present. BOWEL: Unremarkable. No obstruction. No gross mural thickening. APPENDIX: No abnormalities to suggest acute appendicitis. No right lower quadrant inflammatory processes identified. PERITONEUM: Unremarkable. No free fluid. No free air. LYMPH NODES: Unremarkable. No enlarged lymph nodes. BLADDER: Unremarkable. REPRODUCTIVE: ENLARGED UTERUS REDEMONSTRATION LARGE UTERINE FIBROID UNCHANGED COMPARED TO PRIOR STUDY CM. BONES: No acute fracture. OTHER FINDINGS: None. IMPRESSION: No acute or significant findings related to/ accounting for the clinical presentation. Additional benign and/or incidental findings described above. No significant interval change compared to the prior examination(s).
[2018-11-15 20:14] VITALS: BP 145/76; PULSE 86; RESP 18; TEMP 98.3
--- NOTE | 2018-11-16 08:17 | CARD ---
APPROVED REPORT Date of service: 11/15/2018 EKG Measurement Heart [id number] <Conclusion> Sinus rhythm Normal ECG
== END 2018-11-15 19:00 | disposition home or self-care (01) ==
LOC: ED 13:50
DX: R07.9 Chest pain, unspecified (principal); K76.0 Fatty (change of) liver, not elsewhere classified; K21.9 Gastro-esophageal reflux disease without esophagitis; D25.9 Leiomyoma of uterus, unspecified; E11.9 Type 2 diabetes mellitus without complications; E03.9 Hypothyroidism, unspecified; M06.9 Rheumatoid arthritis, unspecified
CPT/HCPCS: 71045; 74177; 80053; 81025; 82550; 82948; 83690; 83735; 84100; 84484; 85025; 93005; 96374; 96375; 99283; J1885; J2405; J7040; Q9967

== ENCOUNTER 2019-03-13 00:38 | Emergency (ER) | payer MEDICAID ==
[2019-03-13 00:47] VITALS: BMI 33.7
[2019-03-13] MEDS ORDERED: Oxycodone/Acetaminophen 5/325 mg Tab PO STA (00:53)
--- NOTE | 2019-03-13 00:56 | ED PDOC ---
Arrival/HPI - General Chief Complaint: Upper Extremity Problem/Injury Historian: Patient - History of Present Illness Narrative History of Present Illness (Text): 03/13/19 00:53 43 y/o female, pmh including dm, allergic to motrin, c/o lt. hand 1st digit t humb nail pain x 2 days with no fall or trauma. pt. stated that she had the nail done at the salon about 2 days ago, been having pain and redness, more on the nail, no numbness or tingling, no fever or chills, no headache or night sweat, no rash, no other medical or psychological complaints. Past Medical History - Provider Review Nursing Documentation Reviewed: Yes - Infectious Disease Hx of Infectious Diseases: None - Tetanus Immunization Tetanus Immunization: Unknown - Cardiac Hx Cardiac Disorders: No - Pulmonary Hx Respiratory Disorders: Yes Hx Asthma: Yes - Neurological Hx Neurological Disorder: No - HEENT Hx HEENT Disorder: No - Renal Hx Renal Disorder: No - Endocrine/Metabolic Hx Endocrine Disorders: Yes Hx Diabetes Mellitus Type 2: Yes Hx Hypothyroidism: Yes - Hematological/Oncological Hx Blood Disorders: No - Integumentary Hx Dermatological Disorder: No - Musculoskeletal/Rheumatological Hx Musculoskeletal Disorders: Yes Hx Arthritis: Yes Hx Rheumatoid Arthritis: Yes - Gastrointestinal Hx Gastrointestinal Disorders: No - Genitourinary/Gynecological Hx Genitourinary Disorders: No - Psychiatric Hx Psychophysiologic Disorder: No Hx Substance Use: No - Past Surgical History Past Surgical History: No Previous - Surgical History Hx Thyroidectomy: Yes Other/Comment: PARTIAL L THYROID - Anesthesia Hx Anesthesia: Yes Hx Anesthesia Reactions: No - Suicidal Assessment Feels Threatened In Home Enviroment: No Family/Social History - Physician Review Nursing Documentation Reviewed: Yes Family/Social History: Unknown Family HX Smoking Status: Heavy Smoker > 10 Cigarettes Daily Hx Alcohol Use: No Hx Substance Use: No Hx Substance Use Treatment: No Allergies/Home Meds Allergies/Adverse Reactions: Allergies ibuprofen [From Motrin] Allergy (Verified 03/13/19 00:50) REDNESS latex Allergy (Verified 03/13/19 00:50) RASH Home Medications: Home Meds Medication Instructions Recorded Confirmed Glimepiride [amaRYL] 4 mg PO DAILY 06/08/16 02/28/18 Diclofenac 75 mg PO BID 10/05/17 02/28/18 Pregabalin [Lyrica] 100 mg PO TID 10/05/17 02/28/18 MetFORMIN [glucoPHAGE] 1,000 mg PO BID 02/28/18 02/28/18 Review of Systems - Review of Systems Constitutional: absent: Fatigue, Fevers Eyes: absent: Vision Changes ENT: absent: Rhinorrhea Respiratory: absent: SOB, Cough Cardiovascular: absent: Chest Pain Gastrointestinal: absent: Abdominal Pain, Diarrhea, Nausea, Vomiting Musculoskeletal: absent: Arthralgias, Back Pain Skin: Abscess, Cellulitis. absent: Rash, Pruritis, Skin Lesions, Laceration, Ul cer Neurological: absent: Headache, Dizziness Psychiatric: absent: Anxiety, Depression, Suicidal Ideation Physical Exam Pain Distress: Moderate Mental Status: Positive for: Alert and Oriented X 3 - Systems Exam Head: Present: Atraumatic, Normocephalic Pupils: Present: PERRL Extroacular Muscles: Present: EOMI Conjunctiva: Present: Normal Mouth: Present: Moist Mucous Membranes Neck: Present: Normal Range of Motion Respiratory/Chest: Present: Clear to Auscultation, Good Air Exchange. No: Respi ratory Distress, Accessory Muscle Use Cardiovascular: Present: Regular Rate and Rhythm, Normal S1, S2. No: Murmurs Abdomen: No: Tenderness, Distention, Peritoneal Signs Back: Present: Normal Inspection Upper Extremity: Present: Normal Inspection, Other (Lt. hand 1st digit thumb: visible sungunal hematoma noted on the proximal nail bed region with surroungind skin cellulitis, no bony tenderness or swelling, negative kanavel sign, FROM without limitation, sensation intact, motor 5/5, neurovascular intact. ). No: Cyanosis, Edema Lower Extremity: Present: Normal Inspection. No: Edema Neurological: Present: GCS=15, CN II-XII Intact, Speech Normal Skin: Present: Warm, Dry, Normal Color. No: Rashes Psychiatric: Present: Alert, Oriented x 3, Normal Insight, Normal Concentration Medical Decision Making ED Course and Treatment: 03/13/19 00:56 -clindmaycin/percocet 03/13/19 00:58 -Urine hcg is negative Procedure: Incision & Drainage Performed by the emergency provider Indication: Abscess Location: lt. hand 1st digit thumb Preparation: The area was prepped and draped in the usual sterile fashion and was cleansed with normal saline 1000cc, clean with betadine. no lidocaine use for anesthesia. Procedure: The most fluctuant portion of the abscess was incised with a 18 gauge nail trephination for the abscess to be drained. Approximately 1 mL of purulant abscess was drained with the pain completely relief. A dressing was applied by the RN. Post-Procedure: On exam the abscess is notably less fluctuant. The patient tolerated the procedure well, and there were no complications. 03/13/19 01:20 -Pt. feels much better and pain relief. -Discharge home with clindamycin, soap the finger with soap and water twice daily, follow up with your own pmd and hand specialist within 2 days, return to the ER for any new or worsening signs or symptoms. - PA / SUPERVISOR PAINT / Resident Statement MD/DO has reviewed & agrees with the documentation as recorded. Disposition/Present on Arrival - Present on Arrival Any Indicators Present on Arrival: No History of DVT/PE: No History of Uncontrolled Diabetes: Yes Urinary Catheter: No History of Decub. Ulcer: No History Surgical Site Infection Following: None - Disposition Have Diagnosis and Disposition been Completed?: Yes Diagnosis: Subungual abscess Disposition: HOME/ ROUTINE Disposition Time: 00:56 Patient Plan: Discharge Condition: IMPROVED Additional Instructions: -Discharge home with clindamycin, soap the finger with soap and water twice daily, follow up with your own pmd and hand specialist within 2 days, return to the ER for any new or worsening signs or symptoms. Prescriptions: Clindamycin [Cleocin] 300 mg PO QID #28 cap Referrals: Devante Hall MD [Staff Provider] - Follow up with primary Forms: [employer] (Kinyarwanda), WORK NOTE
[2019-03-13 01:33] VITALS: BP 132/73; PULSE 95; RESP 18; TEMP 98.2; O2SAT 99
== END 2019-03-13 01:45 | disposition home or self-care (01) ==
LOC: ED 00:38
DX: L02.512 Cutaneous abscess of left hand (principal)